=== PATIENT | male | born 1995 | race Caucasian/White ===

== ENCOUNTER 2021-08-11 10:35 | Emergency (ER) | payer BC, SELFPAY ==
[2021-08-11 10:43] VITALS: PULSE 80; RESP 18; O2SAT 95; BMI 31.6
--- NOTE | 2021-08-11 10:49 | ED_ITS ---
HPI - Abdominal Pain General: Chief Complaint: Abdominal Pain Stated Complaint: possible apendicitis Time Seen by Provider: 08/11/21 10:36 Source: patient Mode of arrival: ambulatory Limitations: no limitations History of Present Illness: Patient is a nice 25-year-old male who presents to ED today with a complaint of right lower abdominal pain over the past 3 days. Patient states he was initially seen at the [facility] walk-in clinic by Dr. Severino and referred to the ED for evaluation of possible acute appendicitis. Patient tells me 3 days ago his pain began gradually and has progressively wor sened over the past 72 hours. He states he was fairly uncomfortable yesterday evening but pain has seemed to slightly ease this morning. He is not having any nausea, vomiting, or diarrhea. He states when he gave a urine sample at [facility] he did notice RLQ pain while urinating. He has not noticed any change of urine color or odor. He has no history of nephroureterolithiasis. Patient has not been running fevers. He has no significant PMH and currently takes no medications. No previous abdominal surgeries. MD elicited complaint: abdominal pain Onset (ago): day(s) Pain Consistency: constant Location: RLQ Quality: sharp Radiation: none Migration to: no migration Exacerbating factors: eating, movement and other (urinating) Relieving factors: nothing Associated Symptoms: Denies change in bowel habits, change in stool character, chills, diarrhea, fever(s), hematuria, nausea and vomiting Review of Systems Const: Denies: fever(s), chills, body aches, fatigue or malaise Card: Denies: chest pain Resp: Denies: dyspnea GI: Reports: abdominal pain; Denies: nausea, vomiting, diarrhea, change in bowel habits or change in stool character : Denies: flank pain, difficulty urinating, urinary frequency, urinary u rgency, urinary hesitancy, difficulty starting urination, oliguria, hematuria, genital pain, genital lesions, penile discharge, testicular pain, testicular mass or scrotal swelling Musc: Denies: neck pain, back pain, extremity pain or joint pain Skin/Breast: Denies: rash Neuro: Denies: headache(s) PFSH ED PFSH: Social History Smoking and tobacco status: former smoker Physical Exam Const: COMMON NORMALS: no acute distress, patient oriented x3, no limitations and alert GENERAL APPEARANCE: cooperative NUTRITIONAL APPEARANCE: overweight ORIENTATION/CONSCIOUSNESS: Yes awake, Yes oriented to person, Yes oriented to place and Yes oriented to time HENMT: COMMON NORMALS: normocephalic and atraumatic HEAD & SCALP: normocephalic and atraumatic Resp: COMMON NORMALS: normal respiratory effort and clear to auscultation bilaterally AUSCULTATION: clear to auscultation bilaterally Cardio: COMMON NORMALS: regular rate and regular rhythm RATE: regular rate RHYTHM: regular rhythm GI: COMMON NORMALS: Normal to inspection, nondistended, normoactive bowel sounds present, Soft to palpation, No hepatosplenomegaly present and no masses INSPECTION: Yes normal to inspection AUSCULTATION: Yes Hypoactive bowel sounds present PALPATION: Yes Soft to palpation, Yes Tenderness to palpation present (GI) Details: RLQ, Yes No hepatosplenomegaly present, Yes Rebound tenderness present and Yes Other GI palpation findings present (positive rovsing's/psoas/obturator) : COMMON NORMALS: Yes no CVA tenderness BLADDER/KIDNEY EXAM: Yes no CVA tenderness Back/Pelvis: COMMON NORMALS: no CVA tenderness Extremity: COMMON NORMALS: normal to inspection GENERAL: Yes normal exam except as noted Neuro: CLOTILDE COMA SCALE: document GCS findings Clotilde coma scale eye opening: Spontaneous [place] coma scale verbal response: Orientated [place] coma scale motor response: Obey commands Cl[place]ilde coma scale total score: 15 COMMON NORMALS: patient oriented x3, moves all extremities, no focal motor deficits, no sensory deficits noted and gait normal SENSORIUM/ORIENTATION: Yes alert, Yes oriented to person, Yes oriented to place and Yes oriented to time Skin: COMMON NORMALS: no rashes or lesions noted GENERAL SKIN EXAM: no rashes or lesions noted Course Vital Signs: Vital signs: Vital Signs Pulse Rate 62 08/11/21 12:52 Respiratory Rate 16 08/11/21 12:52 Blood Pressure 118/71 08/11/21 12:52 Pulse Oximetry 95 08/11/21 12:52 MDM - Abdominal Pain Medical Decision Making Patient is a nice 25-year-old male here for concerns of right lower abdominal pain starting 3 days ago. Patient clinically appears well. His vital signs are normal. He does have fairly significant tenderness to his right lower quadrant. Lab work is unremarkable. He has a normal white count. UA is negative. CT imaging of his abdomen/pelvis shows no acute abnormality. His appendix is normal. At this time recommended close observation of symptoms over the next 24 to 48 hours with strict return to ED precautions given. Otherwise I want him to follow-up with his PCP if pain persists. Lab Data : 08/11/21 10:40 08/11/21 10:40 Labs/Radiology: Radiology Impressions Abdomen/Pelvis CT 08/11/21 10:49 IMPRESSION: No acute abnormality of the abdomen or pelvis. Laboratory Results WBC 5.8 10^3/uL (4.0-10.0) 08/11/21 10:40 RBC 4.86 10^6/uL (4.1-5.3) 08/11/21 10:40 Hgb 13.6 g/dL (11.7-16.6) 08/11/21 10:40 Hct 42.2 % (42.0-52.0) 08/11/21 10:40 MCV 86.8 fl (80-94) 08/11/21 10:40 MCH 28.0 pg (28.0-34.0) 08/11/21 10:40 MCHC 32.2 g/dL (30.0-36.0) 08/11/21 10:40 RDW 12.6 % (12.1-15.1) 08/11/21 10:40 Plt Count 245 10^3/cmm (130-400) 08/11/21 10:40 MPV 10.0 fL (7.4-10.4) 08/11/21 10:40 Neut % (Auto) 52.1 % 08/11/21 10:40 Lymph % (Auto) 33.2 % 08/11/21 10:40 [place] % (Auto) 11.5 % 08/11/21 10:40 Eos % (Auto) 2.3 % 08/11/21 10:40 Baso % (Auto) 0.7 % 08/11/21 10:40 Neut # (Auto) 3.00 10^3/uL (1.8-7.7) 08/11/21 10:40 Lymph # (Auto) 1.9 10^3/uL (0.8-4.8) 08/11/21 10:40 [place] # (Auto) 0.7 10^3/uL (0.2-0.9) 08/11/21 10:40 Eos # (Auto) 0.1 10^3/uL (0.0-0.8) 08/11/21 10:40 Baso # (Auto) 0.0 10^3/uL (0.0-0.1) 08/11/21 10:40 Nucleated RBC % (auto) 0 % 08/11/21 10:40 Nucleated RBCs # 0.0 /100WBC 08/11/21 10:40 Sodium 139 mmol/L (136-145) 08/11/21 10:40 Potassium 4.2 mmol/L (3.5-5.1) 08/11/21 10:40 Chloride 101 mmol/L (98-107) 08/11/21 10:40 Carbon Dioxide 28 mmol/L (22-29) 08/11/21 10:40 Anion Gap 14.2 (5-19) 08/11/21 10:40 BUN 12 mg/dL (6-20) 08/11/21 10:40 Creatinine 0.7 mg/dL (0.7-1.2) 08/11/21 10:40 GFR Calculation 137.4 mL/min (90-130) H 08/11/21 10:40 Glucose 91 mg/dL (65-115) 08/11/21 10:40 Calculated Osmolality 287 mOsm/kg (285-295) 08/11/21 10:40 Calcium 9.6 mg/dL (8.5-10.5) 08/11/21 10:40 Total Bilirubin 0.2 mg/dL (0.15-1.2) 08/11/21 10:40 AST 26 U/L (0-40) 08/11/21 10:40 ALT 25 U/L (0-41) 08/11/21 10:40 Alkaline Phosphatase 80 IU/L (40-130) 08/11/21 10:40 Total Protein 7.4 g/dL (6.6-8.7) 08/11/21 10:40 Albumin 4.2 g/dL (3.5-5.2) 08/11/21 10:40 Globulin 3.2 g/dL (1.3-4.6) 08/11/21 10:40 Urine Color Yellow (Yellow) 08/11/21 11:22 Urine Appearance Clear (CLEAR) 08/11/21 11:22 Urine pH 8 (5-7) H 08/11/21 11:22 Ur Specific [place] 1.010 (1.005-1.030) 08/11/21 11:22 Urine Protein Neg (Negative) 08/11/21 11:22 Urine Glucose (UA) Norm (Normal) 08/11/21 11:22 Urine Ketones Negative (Negative) 08/11/21 11:22 Urine Blood Neg (Negative) 08/11/21 11:22 Urine Nitrate Negative (Negative) 08/11/21 11:22 Urine Bilirubin Neg (Negative) 08/11/21 11:22 Prot Sulfosalicylic Acd Negative (Negative) 08/11/21 11:22 Urine Urobilinogen Neg mg/dL (Negative) 08/11/21 11:22 Ur Leukocyte Esterase Negative (Negative) 08/11/21 11:22 Discharge Plan Discharge Patient Disposition: Home Clinical Impression: Right lower quadrant abdominal pain of unknown etiology Condition: Stable Prescriptions: New tramadol 50 mg tablet 50 mg PO Q6H PRN (Reason: pain) Qty: 14 0RF No Action sulfamethoxazole-trimethoprim [Bactrim DS] 800-160 mg tablet 1 tab PO Q12H 7 Days Qty: 14 0RF naproxen 500 mg tablet 500 mg PO BID PRN (Reason: pain) Qty: 14 0RF ondansetron 4 mg tablet,disintegrating 4 mg PO Q8H PRN (Reason: nausea and vomiting) Qty: 14 0RF Discharge Orders: Discharge ED (Routine); Ordered 08/11/21 Ordered By: Mitali Banuelos Referrals: Rush Severino MD [Family Provider] - Patient Instructions: Abdominal Pain (ED) Activity Restrictions/Additional Instructions: As we discussed unfortunately we did not find a cause for your right lower abdominal pain on today's visit. Vital signs were normal. Your blood work performed here was normal. Urine analysis was normal. CT scan of your abdomen/pelvis showed no acute abnormality. As we discussed please monitor symptoms closely over the next 24 to 48 hours. You need to return to the emergency department for worsening or uncontrollable abdominal pains, repetitive episodes of vomiting or diarrhea, fevers greater than 100.4, inability to urinate, or any other concerns you may have. Otherwise please follow-up with your primary care provider in the next 2 to 3 days. I hope you begin to feel be tter soon. Stand Alone Forms: Work/School Release Coding Level of Care Code ED Character Actress for Jaimie Fwd Exam Comprehensive
--- NOTE | 2021-08-11 10:49 | CT_ITS ---
WS: [id number] CT abdomen pelvis w con* [id number] REASON FOR EXAM: R lower abdominal pain IV CONTRAST ADMINISTERED: 95 mL of Omnipaque 300 TOTAL EXAM DLP: 2122.[address] scans at [facility] use at least one of these dose optimization techniques: automat ed exposure control; mA and/or kV adjustment per patient size (includes targeted exams where dose is matched to clinical indication); or iterative reconstruction. FINDINGS: No hepatic or splenic abnormality. Pancreas and gallbladder are within normal limits. Adrenals and kidneys are unremarkable. No abdominal mass or adenopathy. No focal fluid collection or free fluid. Normal appendix and terminal ileum. Normal right colon. PELVIS: No mass or adenopathy. No focal fluid collection or free fluid. Normal urinary bladder. No inguinal hernia. Normal lumbar spine and bony pelvis. CT/CT abdomen pelvis w con* [id number] IMPRESSION: No acute abnormality of the abdomen or pelvis.
[2021-08-11] MEDS: iohexol 300 mg/mL 100 mL Btl IV (10:55)
[2021-08-11] MEDS: morphine 4 mg/mL SDV 1 mL IVP (11:01)
[2021-08-11] MEDS: ondansetron 2 mg/ML SDV 2 mL 4 MG IVP (11:01)
[2021-08-11] MEDS: sodium chloride 0.9% 1,000 ML 999 ML IV (11:02)
[2021-08-11 11:06] VITALS: PULSE 80; RESP 18; O2SAT 95
[2021-08-11 11:30] LABS: Basophils % 0.7 %; Eosinophils # 0.1 10^3/uL (0.0-0.8); Eosinophils % 2.3 %; Hematocrit 42.2 % (42.0-52.0); Hemoglobin 13.6 g/dL (11.7-16.6); Lymphocytes # 1.9 10^3/uL (0.8-4.8); Lymphocytes % 33.2 %; Mean Corpuscular HGB Conc 32.2 g/dL (30.0-36.0); Mean Corpuscular Volume 86.8 fl (80-94); Monocytes # 0.7 10^3/uL (0.2-0.9); Monocytes % 11.5 %; Neutrophils % 52.1 %; Nucleated Red Blood Cells % 0 %; Platelet Count 245 10^3/cmm (130-400); Red Blood Count 4.86 10^6/uL (4.1-5.3); Red Cell Distribution Width 12.6 % (12.1-15.1); White Blood Count 5.8 10^3/uL (4.0-10.0)
[2021-08-11 11:42] LABS: Alanine Aminotransferase 25 U/L (0-41); Albumin Level 4.2 g/dL (3.5-5.2); Alkaline Phosphatase 80 IU/L (40-130); Anion Gap 14.2 (5-19); Aspartate Amino Transferase 26 U/L (0-40); Blood Urea Nitrogen 12 mg/dL (6-20); Calcium 9.6 mg/dL (8.5-10.5); Carbon Dioxide 28 mmol/L (22-29); Chloride 101 mmol/L (98-107); Globulin 3.2 g/dL (1.3-4.6); Glomerular Filtration Rate 137.4 mL/min (90-130); Glucose 91 mg/dL (65-115); Osmolality Calculated 287 mOsm/kg (285-295); Potassium 4.2 mmol/L (3.5-5.1); Sodium 139 mmol/L (136-145); Total Bilirubin 0.2 mg/dL (0.15-1.2); Total Protein 7.4 g/dL (6.6-8.7)
[2021-08-11 11:54] VITALS: BP 135/70; PULSE 62; RESP 16; O2SAT 95
[2021-08-11 12:02] VITALS: BP 135/70; PULSE 62; RESP 16; O2SAT 95
[2021-08-11 12:04] LABS: Add Urine Microscopic? NO; Charge for UA Resulting for Rev
[2021-08-11 12:09] LABS: Urine Appearance Clear (CLEAR); Urine Color Yellow (Yellow)
[2021-08-11 12:10] LABS: Bilirubin Urine Neg (Negative); Blood Urine Neg (Negative); Glucose Urine UA Norm (Normal); Ketones Urine Negative (Negative); Leukocyte Esterase Urine Negative (Negative); Nitrate Urine Negative (Negative); Protein Urine Neg (Negative); Sulfosalicylic Acid Urine Negative (Negative); Urobilinogen Urine Neg (Negative); pH Urine 8 (5-7)
[2021-08-11 12:52] VITALS: BP 118/71; PULSE 62; RESP 16; O2SAT 95
== END 2021-08-11 12:54 | disposition home or self-care (01) ==
PROVIDERS: Emergency Provider Physician Assistant
DX: R10.31 Right lower quadrant pain (principal); Z87.891 Personal history of nicotine dependence
CPT/HCPCS: 74177; 80053; 81003; 85025; 96361; 96374; 96375; 99284; J2270; J2405; J7030; Q9967